=== PATIENT | female | born 1950 | race Caucasian/White ===

== ENCOUNTER 2024-07-23 10:33 | Emergency (ER) | payer OTHER ==
[~2024-07-23] VITALS: Ht 157.5 cm; Wt 97.5 kg
[2024-07-23] MEDS ORDERED: Ipratropium/Albuterol SulF 2.5-0.5MG/3 ML Amp INH ONE (11:05)
[2024-07-23] MEDS ORDERED: Ketorolac Tromethamine 30mg Vial IM ONE (11:05)
[2024-07-23] MEDS ORDERED: PredniSONE 20 MG Tab PO ONE (11:05)
[2024-07-23 11:39] LABS: CORONAVIRUS COVID-19 AG Negative (NEGATIVE); INFLUENZA A AG Positive (NEGATIVE); INFLUENZA B AG Negative (NEGATIVE)
[2024-07-23] MEDS ORDERED: Albuterol 2.5 MG/3 ML VIAL INH SCH (12:20)
[2024-07-23] MEDS ORDERED: ALBU90OI INH (13:34)
[2024-07-23] MEDS ORDERED: PRED20 PO (13:34)
== END 2024-07-23 13:53 | disposition home or self-care (01) ==
LOC: ER 10:33
PROVIDERS: Student in an Organized Health Care Education/Training Program
DX: J10.89 Influenza due to other identified influenza virus with other manifestations (principal); J20.9 Acute bronchitis, unspecified; Z87.891 Personal history of nicotine dependence; Z88.0 Allergy status to penicillin; Z88.2 Allergy status to sulfonamides
CPT/HCPCS: 71046; 87428-QW; 94640; 94644; 94664; 96372; 99283-25; J1885; J7512